=== PATIENT | male | born 2000 | race Caucasian/White ===

== ENCOUNTER 2023-02-24 20:05 | Emergency (ER) | payer MEDICAID, OTHER ==
[~2023-02-24] VITALS: Ht 144.8 cm; Wt 54.5 kg
[2023-02-24 20:09] VITALS: BP 117/55; O2SAT 100
[2023-02-24] MEDS ORDERED: ACET-2708 MT (22:34)
[2023-02-24 22:46] VITALS: PULSE 86; RESP 18; TEMP 98.3
== END 2023-02-24 22:40 | disposition home or self-care (01) ==
LOC: ER 20:05
DX: S62.306A Unspecified fracture of fifth metacarpal bone, right hand, initial encounter for closed fracture (principal); Z91.040 Latex allergy status; W23.1XXA Caught, crushed, jammed, or pinched between stationary objects, initial encounter; Y93.67 Activity, basketball; Y92.89 Other specified places as the place of occurrence of the external cause; Y99.8 Other external cause status
CPT/HCPCS: 29125; 73130; 99283